=== PATIENT | female | born 1990 | race Caucasian/White ===

== ENCOUNTER → 2016-10-24 11:40 | Emergency (ER) | payer OTHER ==
[~2016-10-24 11:40] MED LIST: Rabies Immune Globulin 10 ML* 150 UNIT/ML VIAL IM ONE; Rabies Vaccine, PCEC INJ* 1 ml IM ONE; Tetan/Diph/Pertus SYR(Tdap)* 0.5 ML SYR(BOOSTRIX) use SYR IM ONE
[2016-10-24 12:04] VITALS: BP 121/70
--- NOTE | 2016-10-24 16:23 | ED ---
Bite Injury/Animal - HPI Summary HPI Summary: 26 year old female presents with family with complaints of being exposed to a bat in their house last night. Patient woke up with bat in house that was killed and thrown away by parents. Patient does not have any known bites. Called [facility] who stated to come to the ER for rabies prophylaxis. Patient has not PMHx and no other complaints at this time. Animal is not available for testing. - History of Current Complaint Chief Complaint: EDAnimalBite Stated Complaint: BAT EXPOSURE Time Seen by Provider: 10/24/16 12:53 Hx Obtained From: Patient Onset of Injury: Happened hours ago Type of Bite: Wild Animal - bat Has Animal Been Immunized?: No Severity Currently: None Pain Intensity: 0 Pain Scale Used: 0-10 Numeric Animal Available for Observation: No Animal Control Notified: Yes - Allergies/Home Medications Allergies/Adverse Reactions: Allergies Allergy/AdvReac Type Severity Reaction Status Date / Time No Known Allergies Allergy Verified 10/24/16 12:02 PMH/Surg Hx/FS Hx/Imm Hx Endocrine/Hematology History: Denies: Hx Diabetes Cardiovascular History: Denies: Hx Hypertension, Hx Pacemaker/ICD Respiratory History: Denies: Hx Asthma Sensory History: Denies: Hx Hearing Aid Psychiatric History: Reports: Hx Anxiety, Hx Panic Disorder - A LITTLE BIT - Surgical History Surgery Procedure, Year, and Place: none - Immunization History Immunizations Up to Date: Yes Infectious Disease History: No Infectious Disease History: Denies: Traveled Outside the [place] in Last 30 Days - Family History Known Family History: Positive: None - Social History Alcohol Use: None Substance Use Type: Reports: None Smoking Status (MU): Unknown if Ever Smoked Have You Smoked in the Last Year: No Review of Systems Constitutional: Negative Cardiovascular: Negative Respiratory: Negative Gastrointestinal: Negative Musculoskeletal: Negative Skin: Negative Neurological: Negative All Other Systems Reviewed And Are Negative: Yes Physical Exam Triage Information Reviewed: Yes Vital Signs On Initial Exam: Initial Vitals Temp Pulse Resp BP Pulse Ox 97.9 F 75 16 121/70 99 10/24/16 12:03 10/24/16 12:03 10/24/16 12:03 10/24/16 12:03 10/24/16 12:03 Vital Signs Reviewed: Yes Appearance: Positive: Well-Appearing, No Pain Distress, Well-Nourished Skin: Positive: Warm, Skin Color Reflects Adequate Perfusion, Dry. Negative: Cold, Numb, Erythema @ Head/Face: Positive: Normal Head/Face Inspection Eyes: Positive: Conjunctiva Clear ENT: Positive: Hearing grossly normal Neck: Positive: Supple, Nontender Respiratory/Lung Sounds: Positive: Clear to Auscultation, Breath Sounds Present. Negative: Rales, Rhonchi, Wheezes Cardiovascular: Positive: Normal, RRR, Pulses are Symmetrical in both Upper and Lower Extremities. Negative: Murmur, Rub Bowel Sounds: Positive: Present Musculoskeletal: Positive: Normal, Strength/ROM Intact Neurological: Positive: Normal, Sensory/Motor Intact, Alert, Oriented to Person Place, Time Psychiatric: Positive: Affect/Mood Appropriate Diagnostics - Vital Signs Vital Signs Temp Pulse Resp BP Pulse Ox 10/24/16 13:02 97.9 F 75 16 121/70 100 10/24/16 12:03 97.9 F 75 16 121/70 99 - Laboratory Lab Statement: Any lab studies that have been ordered have been reviewed, and results considered in the medical decision making process. Bite Injury Course/Dx - Course Course Of Treatment: according to [facility] patient was appropriately prophylactically treated for rabies. aware of worsening signs and symptoms no concern for bites. tetanus was updated. follow up with [facility] and peds. - Diagnoses Differential Diagnosis/HQI/PQRI: Positive: Laceration, Puncture, Rabies Exposure Provider Diagnosis: Need for post exposure prophylaxis for rabies - Provider Notifications Discussed Care Of Patient With: [facility] Discharge - Discharge Plan Condition: Stable Disposition: HOME Patient Education Materials: Rabies Vaccine (By injection), Rabies Immune Globulin (By injection), Rabies (ED) Referrals: Burton Fragoso MD [Primary Care Provider] - Additional Instructions: Please follow up with health department for remaining immunizations on day 3, 7 and 14 as directed.
== END | disposition home or self-care (01) ==
LOC: ED 11:40
DX: Z20.3 Contact with and (suspected) exposure to rabies (principal)
CPT/HCPCS: 90375; 90471; 90675; 90715; 99281

== ENCOUNTER 2016-10-27 13:55 | Emergency (ER) | payer OTHER ==
[2016-10-27] MEDS ORDERED: Rabies Vaccine, PCEC INJ* 1 ml IM ONE (14:36)
--- NOTE | 2016-10-27 14:37 | UC ---
General HPI - HPI Summary HPI Summary: Here for Day 3 Rabies Vaccine number 2 - History of Current Complaint Chief Complaint: UCGeneralIllness Stated Complaint: RABIES VACC Time Seen by Provider: 10/27/16 14:27 Hx Obtained From: Patient Onset/Duration: Sudden Onset Timing: Constant Current Severity: None - Allergy/Home Medications Allergies/Adverse Reactions: Allergies Allergy/AdvReac Type Severity Reaction Status Date / Time No Known Allergies Allergy Verified 10/27/16 14:05 PMH/Surg Hx/FS Hx/Imm Hx Previously Healthy: Yes - Surgical History Surgical History: None Surgery Procedure, Year, and Place: none - Family History Known Family History: Positive: None - Social History Occupation: Unemployed Lives: With Family Alcohol Use: None Substance Use Type: None Smoking Status (MU): Unknown if Ever Smoked Have You Smoked in the Last Year: No - Immunization History Most Recent Influenza Vaccination: 2012 Most Recent Tetanus Shot: 2013 Most Recent Pneumonia Vaccination: never Review of Systems Constitutional: Negative Skin: Negative Eyes: Negative ENT: Negative Respiratory: Negative Cardiovascular: Negative Gastrointestinal: Negative Genitourinary: Negative Motor: Negative Neurovascular: Negative Musculoskeletal: Negative Neurological: Negative Psychological: Negative All Other Systems Reviewed And Are Negative: Yes Physical Exam Triage Information Reviewed: Yes Appearance: Well-Appearing, No Pain Distress, Well-Nourished Vital Signs: Initial Vital Signs Temp 97.8 F 10/27/16 14:06 Resp 16 10/27/16 14:06 Vital Signs Reviewed: Yes Eye Exam: Normal Eyes: Positive: Conjunctiva Clear ENT Exam: Normal ENT: Positive: Normal ENT inspection, Hearing grossly normal. Negative: Nasal congestion, Nasal drainage, Trismus, Muffled/hoarse voice Dental Exam: Normal Neck exam: Normal Neck: Positive: Supple, Nontender Respiratory Exam: Normal Respiratory: Positive: Chest non-tender, No respiratory distress, No accessory muscle use Cardiovascular Exam: Normal Cardiovascular: Positive: Pulses Normal, Brisk Capillary Refill Musculoskeletal Exam: Normal Musculoskeletal: Positive: Strength Intact, ROM Intact, No Edema Neurological Exam: Normal Neurological: Positive: Alert, Muscle Tone Normal Psychological Exam: Normal Skin Exam: Normal Course/Dx - Course Course Of Treatment: rabies vaccine number 2, day 3 follow here for day 7 vaccine - Differential Dx - Multi-Symptom Differential Diagnoses: Sepsis, Other - Rabies exposure Provider Diagnoses: Rabies Exposure, Post exposure treatment Discharge - Discharge Plan Condition: Stable Disposition: HOME Patient Education Materials: Rabies Vaccine (ED) Referrals: Burton Fragoso MD [Primary Care Provider] - Additional Instructions: Continue with vaccine Schedule
[2016-10-27] MEDS ORDERED: Rabies VIRUS VACCINE, HDCV* 2.5 UNIT/ML 1 ML IM ONE (15:00)
== END 2016-10-27 15:39 | disposition home or self-care (01) ==
LOC: UCEAST 13:55
DX: Z20.3 Contact with and (suspected) exposure to rabies (principal)
CPT/HCPCS: 90471; 90675; 99211; G0463

== ENCOUNTER 2016-10-31 07:05 | Emergency (ER) | payer OTHER ==
[2016-10-31 09:08] VITALS: BP 117/49
[2016-10-31] MEDS ORDERED: Rabies Vaccine, PCEC INJ* 1 ml IM ONE (09:54)
[2016-10-31] MEDS ORDERED: Rabies VIRUS VACCINE, HDCV* 2.5 UNIT/ML 1 ML IM ONE (10:00)
--- NOTE | 2016-10-31 10:04 | UC ---
UC General HPI - HPI Summary HPI Summary: DAY SEVEN OF RABIES VACCINE TREATMENT, PER HEALTH DEPARTMENT. EXPOSED TO BAT IN HOME WITH NO KNOWN BITES. TREATMENT BEGAN 10/25/16. UTD ON IMMUNIZATIONS AT THAT TIME. - History of Current Complaint Chief Complaint: UCGeneralIllness Stated Complaint: RABIES EXPOSURE Time Seen by Provider: 10/31/16 09:35 Hx Obtained From: Patient, Family/Cooker Sulfate Hx Last Menstrual Period: 10/06/16 Onset/Duration: Lasting Weeks Onset Severity: Mild Current Severity: None Associated Signs & Symptoms: Negative: Abdominal Pain, Back Pain, Cough, Chest Pain, Dizziness, Edema, Fever, Headache, Nausea, Syncope, SOB, Trauma, Vomiting , Weakness - Allergy/Home Medications Allergies/Adverse Reactions: Allergies Allergy/AdvReac Type Severity Reaction Status Date / Time No Known Allergies Allergy Verified 10/31/16 09:03 Home Medications: Home Medications NK [No Home Medications Reported] 10/31/16 [History Confirmed 10/31/16] PMH/Surg Hx/FS Hx/Imm Hx Previously Healthy: Yes - Surgical History Surgical History: None Surgery Procedure, Year, and Place: none - Family History Known Family History: Positive: None Negative: Respiratory Disease - Social History Occupation: Employed Full-time Lives: With Family Alcohol Use: None Substance Use Type: None Smoking Status (MU): Never Smoked Tobacco Have You Smoked in the Last Year: No - Immunization History Most Recent Influenza Vaccination: 2012 Most Recent Tetanus Shot: 2013 Most Recent Pneumonia Vaccination: never Review of Systems Constitutional: Negative Skin: Negative Eyes: Negative ENT: Negative Respiratory: Negative Cardiovascular: Negative Gastrointestinal: Negative Genitourinary: Negative Motor: Negative Neurovascular: Negative Musculoskeletal: Negative Neurological: Negative Psychological: Negative All Other Systems Reviewed And Are Negative: Yes Physical Exam Triage Information Reviewed: Yes Appearance: Well-Appearing, No Pain Distress, Well-Nourished Vital Signs: Initial Vital Signs Temp 97.7 F 10/31/16 09:03 Pulse 75 10/31/16 09:03 Resp 15 10/31/16 09:03 BP 117/49 10/31/16 09:03 Pulse Ox 100 10/31/16 09:03 Vital Signs Reviewed: Yes Eye Exam: Normal ENT Exam: Normal ENT: Positive: Normal ENT inspection Dental Exam: Normal Neck exam: Normal Neck: Positive: Supple, Nontender, No Lymphadenopathy Respiratory Exam: Normal Respiratory: Positive: Chest non-tender, Lungs clear, Normal breath sounds, No respiratory distress Cardiovascular Exam: Normal Cardiovascular: Positive: RRR, No Murmur, Pulses Normal Abdominal Exam: Normal Musculoskeletal Exam: Normal Neurological Exam: Normal Psychological Exam: Normal Skin Exam: Normal Course/Dx - Differential Dx - Multi-Symptom Provider Diagnoses: POST EXPOSURE RABIES VACCINE Discharge - Discharge Plan Condition: Stable Disposition: HOME Patient Education Materials: Rabies Vaccine (ED) Referrals: Burton Fragoso MD [Primary Care Provider] -
[2016-10-31] MEDS ORDERED: [UNRECOGNIZED DRUG - OTHER] IM ONE (11:00)
== END 2016-10-31 10:22 | disposition home or self-care (01) ==
LOC: UCEAST 07:05
DX: Z20.3 Contact with and (suspected) exposure to rabies (principal); Z23 Encounter for immunization
CPT/HCPCS: 90471; 90675; 99211; G0463

== ENCOUNTER 2016-11-07 07:07 | Emergency (ER) | payer OTHER ==
[2016-11-07 07:28] VITALS: BP 118/65
[2016-11-07] MEDS ORDERED: Rabies VIRUS VACCINE, HDCV* 2.5 UNIT/ML 1 ML IM ONE (07:34)
--- NOTE | 2016-11-07 08:14 | UC ---
UC General HPI - HPI Summary HPI Summary: 26 YEAR OLD FEMALE PRESENTS FOR RABIES VACCINE. NO ACUTE ISSUES. - History of Current Complaint Chief Complaint: UCBiteInjury Stated Complaint: rabies shot Time Seen by Provider: 11/07/16 07:33 Hx Obtained From: Patient Hx Last Menstrual Period: 10/14/16 Onset/Duration: Sudden Onset Timing: Constant Onset Severity: Moderate Current Severity: Moderate - Allergy/Home Medications Allergies/Adverse Reactions: Allergies Allergy/AdvReac Type Severity Reaction Status Date / Time No Known Allergies Allergy Verified 11/07/16 07:29 Home Medications: Home Medications LoraTADine TAB(NF) [Claritin 10 MG TAB(NF)] 10 mg PO DAILY PRN 11/07/16 [ History Confirmed 11/07/16] PMH/Surg Hx/FS Hx/Imm Hx Previously Healthy: Yes - Surgical History Surgical History: None Surgery Procedure, Year, and Place: none - Family History Known Family History: Positive: None Negative: Respiratory Disease - Social History Alcohol Use: None Substance Use Type: None Smoking Status (MU): Never Smoked Tobacco Have You Smoked in the Last Year: No - Immunization History Most Recent Influenza Vaccination: 2012 Most Recent Tetanus Shot: 2013 Most Recent Pneumonia Vaccination: never Review of Systems Constitutional: Negative Skin: Negative Eyes: Negative ENT: Negative Respiratory: Negative Cardiovascular: Negative Gastrointestinal: Negative Genitourinary: Negative Motor: Negative Neurovascular: Negative Musculoskeletal: Negative Neurological: Negative Psychological: Negative All Other Systems Reviewed And Are Negative: Yes Physical Exam Triage Information Reviewed: Yes Vital Signs: Initial Vital Signs Temp 36.5 C 11/07/16 07:25 Pulse 86 11/07/16 07:25 Resp 16 11/07/16 07:25 BP 118/65 11/07/16 07:25 Pulse Ox 99 11/07/16 07:25 Eye Exam: Normal ENT Exam: Normal Dental Exam: Normal Neck exam: Normal Neck: Positive: 1 Respiratory Exam: Normal Cardiovascular Exam: Normal Abdominal Exam: Normal Musculoskeletal Exam: Normal Neurological Exam: Normal Psychological Exam: Normal Skin Exam: Normal Course/Dx - Differential Dx - Multi-Symptom Provider Diagnoses: RABBIES VACCINE Discharge - Discharge Plan Condition: Stable Disposition: HOME Patient Education Materials: Rabies (ED), Rabies Vaccine (ED) Referrals: Burton Fragoso MD [Primary Care Provider] -
== END 2016-11-07 08:20 | disposition home or self-care (01) ==
LOC: UCEAST 07:07
DX: Z23 Encounter for immunization (principal)
CPT/HCPCS: 90471; 99211; G0463